=== PATIENT | female | born 1940 | race Two or more races ===

== ENCOUNTER 2022-08-25 18:01 | Inpatient (IN) | payer OTHER ==
[~2022-08-25] VITALS: Ht 157.5 cm; Wt 40.0 kg
[2022-08-25 22:08] LABS: Basophils # (auto) 0 10 ^3/uL (0-0.2); Basophils % (auto) 0.2 % (0.0-2.0); Eosinophils # (auto) 0 10 ^3/uL (0-0.8); Eosinophils % (auto) 0.1 % (0.0-7.0); Hematocrit 38.7 % (36.0-46.0); Hemoglobin 13.1 g/dL (12.2-16.2); Lymphocytes # (auto) 0.8 10 ^3/uL (0.4-5.4); Lymphocytes % (auto) 8.1 % (10.0-50.0); Mean Corpuscular Hemoglobin 31.8 pg (28.0-32.0); Mean Corpuscular Hgb Conc. 33.8 g/dL (32.0-36.0); Mean Corpuscular Volume 94.1 fL (80.0-100.0); Monocytes # (auto) 0.8 10 ^3/uL (0-1.3); Monocytes % (auto) 7.9 % (0.0-12.0); Neutrophils % (auto) 83.7 % (37.0-80.0); Nucleated Red Blood Cells % 0.1 %; Red Blood Cells 4.11 10^6/uL (4.0-5.20); Red Cell Distribution Width 18.2 % (11.8-14.3); White Blood Cell 9.6 10^3/uL (4.4-10.8)
[2022-08-25 22:20] LABS: Albumin 2.6 g/dL (3.4-5.0); BUN/Creatinine Ratio 19.6; Calcium 8.3 mg/dL (8.5-10.1); Potassium 3.7 mmol/L (3.5-5.1)
[2022-08-25 22:23] LABS: Bilirubin, Total 0.5 mg/dL (0.2-1.0); Total Protein 6.1 g/dL (6.4-8.2)
[2022-08-26] MEDS ORDERED: methylPREDNISolone SOD SUCC 125 MG/2 ML VL IV ONE (06:45)
[2022-08-26] MEDS ORDERED: AZITHROMYCIN 250 MG TAB PO ONE (06:45)
[2022-08-26] MEDS ORDERED: cefTRIAXone 1GM/50ML D5W 50 ML IV ONE (06:45)
[2022-08-26] MEDS ORDERED: NITROGLYCERIN 0.4 MG SL TAB SL PRN (09:30)
[2022-08-26] MEDS ORDERED: ACETAMINOPHEN 325 MG TAB PO PRN (09:30)
[2022-08-26] MEDS ORDERED: ACETAMINOPHEN 500 MG TAB PO PRN (09:30)
[2022-08-26] MEDS ORDERED: ONDANSETRON HCL 4 MG/2 ML VIAL IV PRN (09:30)
[2022-08-26] MEDS ORDERED: DEXTROSE (50%) 50ML SYRG IV PRN (09:45)
[2022-08-26] MEDS: DOCUSATE SOD 100 MG CAP PO SCH (19:27)
[2022-08-26] MEDS: CARVEDILOL 3.125 MG TAB PO SCH ×2 (19:28→22:23)
[2022-08-26] MEDS: ACCU-CHEK COMFORT CURVE STRIP VI SCH ×4 (19:29→23:58)
[2022-08-26] MEDS: CLOPIDOGREL BISULFATE 75 MG TAB PO SCH (19:29)
[2022-08-26] MEDS: InsuLIN REG 1unit/0.01ml Soln (100units/ml) SC SCH ×4 (19:29→23:58)
[2022-08-26] MEDS: ENALAPRIL MALEATE 2.5 MG TAB PO SCH ×2 (19:29→22:00)
[2022-08-26] MEDS: ENOXAPARIN SOD 40 MG/0.4 ML SYRINGE SC SCH (19:29)
[2022-08-26] MEDS: ASPirin 81 mg TAB PO SCH (19:43)
[2022-08-26] MEDS: SODIUM CHLORIDE 0.9% 1,000 ML IV SCH ×2 (19:43→22:50)
[2022-08-26] MEDS: ATORVASTATIN 20 MG TAB PO SCH (22:24)
[2022-08-27] MEDS: InsuLIN REG 1unit/0.01ml Soln (100units/ml) SC SCH ×5 (04:00→20:00)
[2022-08-27] MEDS: ACCU-CHEK COMFORT CURVE STRIP VI SCH ×5 (04:11→20:14)
[2022-08-27 06:25] LABS: Basophils # (auto) 0 10 ^3/uL (0-0.2); Basophils % (auto) 0.2 % (0.0-2.0); Eosinophils # (auto) 0 10 ^3/uL (0-0.8); Hematocrit 37.6 % (36.0-46.0); Hemoglobin 12.6 g/dL (12.2-16.2); Lymphocytes # (auto) 0.5 10 ^3/uL (0.4-5.4); Lymphocytes % (auto) 5.5 % (10.0-50.0); Mean Corpuscular Hemoglobin 32.8 pg (28.0-32.0); Mean Corpuscular Hgb Conc. 33.6 g/dL (32.0-36.0); Mean Corpuscular Volume 97.7 fL (80.0-100.0); Monocytes # (auto) 0.6 10 ^3/uL (0-1.3); Monocytes % (auto) 6.9 % (0.0-12.0); Neutrophils # (auto) 8.1 10 ^3/uL (1.6-8.6); Neutrophils % (auto) 87.4 % (37.0-80.0); Red Blood Cells 3.85 10^6/uL (4.0-5.20); Red Cell Distribution Width 18.3 % (11.8-14.3); White Blood Cell 9.3 10^3/uL (4.4-10.8)
[2022-08-27 06:48] LABS: BUN/Creatinine Ratio 28.8; Calcium 8.1 mg/dL (8.5-10.1); Potassium 4.1 mmol/L (3.5-5.1)
[2022-08-27] MEDS: ENALAPRIL MALEATE 2.5 MG TAB PO SCH ×2 (10:00→22:00)
[2022-08-27] MEDS: CARVEDILOL 3.125 MG TAB PO SCH ×2 (10:00→22:00)
[2022-08-27] MEDS: ENOXAPARIN SOD 40 MG/0.4 ML SYRINGE SC SCH (10:00)
[2022-08-27] MEDS: ASPirin 81 mg TAB PO SCH (10:17)
[2022-08-27] MEDS: cefTRIAXone 1GM/50ML D5W 50 ML IV SCH (10:17)
[2022-08-27] MEDS: PANTOPRAZOLE 40 MG TAB PO SCH (10:18)
[2022-08-27] MEDS: CLOPIDOGREL BISULFATE 75 MG TAB PO SCH (10:18)
[2022-08-27] MEDS: DOCUSATE SOD 100 MG CAP PO SCH (10:18)
[2022-08-27] MEDS: SODIUM CHLORIDE 0.9% 1,000 ML IV SCH (12:10)
[2022-08-27] MEDS ORDERED: GADOTERATE MEG 7.5 MMOL/15ml INJ (0.5MMOL/ml) IV ONE (13:41)
[2022-08-27] MEDS: AZITHROMYCIN 500MG/ 250ML 250 ML IV SCH (14:08)
[2022-08-27 14:42] VITALS: BP 104/64
[2022-08-27] MEDS ORDERED: CITA10TA70 PO (16:19)
[2022-08-27 21:55] VITALS: BP 90/50
[2022-08-27] MEDS: ATORVASTATIN 20 MG TAB PO SCH (22:00)
[2022-08-28] MEDS: SODIUM CHLORIDE 0.9% 1,000 ML IV SCH (01:30)
[2022-08-28] MEDS: InsuLIN REG 1unit/0.01ml Soln (100units/ml) SC SCH ×4 (04:00→13:02)
[2022-08-28] MEDS: ACCU-CHEK COMFORT CURVE STRIP VI SCH ×4 (04:26→13:02)
[2022-08-28 05:00] VITALS: BP 103/52
[2022-08-28 08:00] VITALS: BP 111/57
[2022-08-28] MEDS: cefTRIAXone 1GM/50ML D5W 50 ML IV SCH (08:05)
[2022-08-28] MEDS: AZITHROMYCIN 500MG/ 250ML 250 ML IV SCH (09:32)
[2022-08-28 09:39] LABS: INR 0.97 (0.9-1.15); Partial Thromboplastin Time 31.9 sec (24.6-33.4)
[2022-08-28] MEDS: DOCUSATE SOD 100 MG CAP PO SCH ×2 (09:43→10:00)
[2022-08-28] MEDS: CARVEDILOL 3.125 MG TAB PO SCH (09:43)
[2022-08-28] MEDS: PANTOPRAZOLE 40 MG TAB PO SCH (09:43)
[2022-08-28] MEDS: ENALAPRIL MALEATE 2.5 MG TAB PO SCH (09:43)
[2022-08-28] MEDS: CLOPIDOGREL BISULFATE 75 MG TAB PO SCH (09:47)
[2022-08-28] MEDS: ENOXAPARIN SOD 40 MG/0.4 ML SYRINGE SC SCH (09:47)
[2022-08-28] MEDS: ASPirin 81 mg TAB PO SCH (09:47)
[2022-08-28 10:35] VITALS: BP 111/57
[2022-08-28 13:29] VITALS: BP 111/57
== END 2022-08-28 14:10 | disposition home or self-care (01) | DRG 840 ==
LOC: ER 18:01 → EDBD 18:01 → TELE 08-26 09:33 → TELE-EAST 08-27 21:05
PROVIDERS: ADMIT Hospitalist; ATTEND Internal Medicine Geriatric Medicine
DX: C26.1 Malignant neoplasm of spleen (principal); I21.4 Non-ST elevation (NSTEMI) myocardial infarction; J96.00 Acute respiratory failure, unspecified whether with hypoxia or hypercapnia; J90 Pleural effusion, not elsewhere classified; J98.11 Atelectasis; D49.1 Neoplasm of unspecified behavior of respiratory system; J44.9 Chronic obstructive pulmonary disease, unspecified; I10 Essential (primary) hypertension; Z20.822 Contact with and (suspected) exposure to COVID-19; D35.02 Benign neoplasm of left adrenal gland; E78.5 Hyperlipidemia, unspecified; K21.9 Gastro-esophageal reflux disease without esophagitis; Z79.02 Long term (current) use of antithrombotics/antiplatelets; Z79.82 Long term (current) use of aspirin; Z98.82 Breast implant status; Z87.891 Personal history of nicotine dependence
CPT/HCPCS: 36415; 70450; 71045; 71250; 74176; 74183; 80048; 80053; 80320; 82105; 82378; 82962; 83605; 83690; 83880; 84484; 85025; 85610; 85730; 86301; 86304; 87426; 93005; 96365; 96366; 96375; G0378; J0696; J1815